=== PATIENT | male | born 1980 | race Caucasian/White ===

== ENCOUNTER 2021-03-27 21:55 | Emergency (ER) | payer OTHER ==
[~2021-03-27 21:55] MED LIST: FLOMAX0.4 MG PO; PERCOCET 5-3251 EACH PO
[2021-03-27 22:34] LABS: EOSINOPHIL 1.4 % (0-5); HCT 43.7 % (42.0-52.0); HGB 14.9 g/dl (13.2-18.0); LYMPHOCYTE 28.4 % (15-48); MCH 31.1 pg (25.0-31.0); MCHC 34.1 g/dL (32.0-36.0); MCV 91.2 fL (78.0-100.0); MONOCYTE 9.7 % (0-12); MPV 10.8 fL (6.0-9.5); NEUTROPHIL 59.2 % (41-80); NRBC 0; PLT 206 K/uL (150-400); RBC 4.79 M/uL (4.70-6.00); RDW 12.1 % (11.5-14.0); WBC 9.2 K/uL (4.0-10.5)
[2021-03-27 22:51] LABS: ALBUMIN 4.2 g/dL (3.4-5.0); BILIRUBIN - TOTAL 0.3 mg/dL (0.2-1.0); BUN/CREAT RATIO (CALC) 13.8 RATIO; CREATININE 1.16 mg/dL (0.67-1.17); GLOBULIN (CALCULATION) 3.3 g/dL; MAGNESIUM 2.3 mg/dL (1.8-2.4); POTASSIUM 4.3 mmol/L (3.5-5.1); TOTAL PROTEIN 7.5 g/dL (6.4-8.2)
[2021-03-27 22:56] LABS: BILIRUBIN NEGATIVE (NEGATIVE); BLOOD 3+ Ery/uL (NEGATIVE); CLARITY HAZY (CLEAR); COLOR YELLOW (YELLOW); GLUCOSE (U) NORMAL (NORMAL); LEUKOCYTES NEGATIVE Leu/uL (NEGATIVE); NITRITE NEGATIVE (NEGATIVE); PROTEIN TRACE (LOW) mg/dL (NEGATIVE); SPECIFIC GRAVITY 1.015 (1.001-1.030); UROBILINOGEN 0.2 mg/dL (0.2-1.0)
[2021-03-27 23:02] LABS: URINARY RBC TNTC; URINARY WBC RARE
[2021-03-28] MEDS ORDERED: PERCOCET 7.5/321 TAB PO (00:27)
[2021-03-28] MEDS ORDERED: FLOMAX0.4 MG PO (00:27)
[2021-03-28] MEDS ORDERED: NAPROXEN500 MG PO (00:27)
== END 2021-03-28 00:50 | disposition home or self-care (01) ==
LOC: FER 21:55
PROVIDERS: Emergency Medicine
DX: N13.2 Hydronephrosis with renal and ureteral calculous obstruction (principal)
CPT/HCPCS: 36415; 80053; 81001; 83735; 85025; J1170; J1885; J2405